=== PATIENT | male | born 1935 | race African-American/Black ===

== ENCOUNTER 2016-08-19 13:52 | Emergency (ER) | payer OTHER ==
--- NOTE | 2016-08-19 14:35 | CT ---
Indications: Patient fell in May. Right-sided neck pain. Initial encounter. Comparisons: None Technique: Contiguous axial 2 mm images of the cervical spine are obtained without IV contrast. Sagittal and coronal reformations are also obtained at this time. CT DI: 13.7 DLP: 309.3 Findings: Alignment: There is straightening of the normal cervical lordosis likely on the basis of patient positioning or muscle spasm. Prevertebral Soft Tissue Swelling: None Bones: No fracture or dislocation Degenerative Changes: Multilevel degenerative disc disease is present with moderate to severe disc height loss. Endplate hypertrophy is noted both anterior and posteriorly. 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 Regional Soft tissues and Lung Apices: Normal Impression: Degenerative changes without fracture or dislocation. Report was uploaded to the electronic medical record at approximately 1431 hours on 08/19/2016.
== END 2016-08-19 14:59 | disposition home or self-care (01) ==
LOC: ED 13:52
DX: M47.812 Spondylosis without myelopathy or radiculopathy, cervical region (principal); I10 Essential (primary) hypertension